=== PATIENT | male | born 1975 | race Caucasian/White ===

== ENCOUNTER 2017-01-28 20:03 | Inpatient (IN) | payer OTHER ==
--- NOTE | ~2017-01-28 | PN ---
Unit #: [id number] #: [id number] Patient: EVELINA SOLANO [id number] [facility] [address] [place] [address] [id number] MR#: [id number] NAME: EVELINA SOLANO. ROOM: P1 Age: 41 Sex: M Admission Date: 01/28/2017 : 1975 Attending Physician: Kizzy Davidson M.D. Admitting Physician: Kizzy Davidson M.D. Primary Care Physician: Paola COX NOTES DATE OF SERVICE: 02/06/2017 SUBJECTIVE Mr. Solano is a 41-year-old white male with mood disorder and substance abuse, who was seen today and chart was reviewed and case was discussed with the staff. He has been doing fairly well, though has been complaining of persistent anxiety and depressive symptoms, though has been taking medications and tolerating them fairly well with no reported side effects. MENTAL STATUS EXAMINATION Middle-aged white male who was casually dressed with fair personal hygiene, appears to be in no acute distress or discomfort. He was awake and alert with intact orientation. His mood was anxious with a congruent affect. He denies any suicidal or homicidal ideations. His insight and judgment remain slightly impaired. TREATMENT PLAN 1. We will continue on his current medications and treatment protocol. We will monitor his response to the medications and make further adjustments as needed. 2. We will continue to follow up. Dictated by... Kizzy Davidson M.D. DILLON/dorianl TD: 02/08/2017 01:20 JOB #: [id number] IVANNA COX NOTES Page 1 of 1 X Kizzy Davidson MD PROGRESS NOTE
--- NOTE | ~2017-01-28 | PN ---
Unit #: [id number] #: [id number] Patient: EVELINA IBARRA [id number] [facility] [address] [place] [address] [id number] I MR#: [id number] NAME: EVELINA IBARRA ROOM: [facility] Age: 41 Sex: M Admission Date: 01/28/2017 : 1975 Attending Physician: Kizzy Davidson M.D. Admitting Physician: Kizzy Davidson M.D. Primary Care Physician: Paola GONCALVES PROGRESS NOTES DATE OF SERVICE 02/04/2017 DISCUSSION Mr. Ibarra is a 41-year-old white male who was seen today. Chart was reviewed and case was discussed with the staff. He has been complaining of persistent depression and anxiety. Meanwhile, he has been cooperative with the treatment recommendations and has been taking the medications and tolerating them fairly well with no reported side effects. MENTAL STATUS EXAMINATION Middle-aged white male who is casually dressed. His mood is anxious with congruent affect. His speech is slow and goal-directed. He reports having suicidal ideation but denies any homicidal ideation. His insight and judgment remain slightly impaired. TREATMENT PLAN 1. We will continue him on his current medications and treatment protocol. We will monitor his response to the medications and make further adjustments as needed. 2. We will continue to follow up. Dictated by... Bill Walker/bzg TD: 02/04/2017 13:35 JOB #: [id number] IVANNA PROGRESS NOTES Page 1 of 1 X Kizzy Davidson MD X PROGRESS NOTE
--- NOTE | ~2017-01-28 | HP ---
Unit #: [id number] #: [id number] Patient: TRACE SOLANO [id number] [place] [address] [id number] I MR#: [id number] NAME: TRACE SOLANO. ROOM: [facility] Age: 41 Sex: M Admission Date: 01/28/2017 : 1975 Attending Physician: Kizzy Davidson M.D. Admitting Physician: Kizzy Davidson M.D. Primary Care Physician: Paola Bello HISTORY AND PHYSICAL HISTORY OF PRESENT ILLNESS Trace is a 41-year-old male admitted on 01/28/2017 to [facility] for detox from alcohol. He also has complaints of depression, anxiety, and bipolar disorder. PAST MEDICAL HISTORY 1. Obesity. 2. Chronic migraine. 3. Fibromyalgia. 4. Hypertension. 5. Hyperlipidemia. PAST SURGICAL HISTORY Appendectomy. SOCIAL HISTORY Smokes half pack of cigarettes daily. Drinks 3 to 6 beers daily and has a history of (1) __. He is currently single (2) __. FAMILY HISTORY Noncontributory. REVIEW OF SYSTEMS CONSTITUTIONAL: No fever or chills. HEENT: Denies any sore throat, ear pain or runny nose. CARDIOVASCULAR: Denies chest pain, irregular heart rhythm or palpitations. CHEST: Denies shortness of breath or cough. No hemoptysis. GASTROINTESTINAL: Denies nausea, vomiting, diarrhea or chronic constipation. ENDOCRINE: Denies history of increased thirst or urination. No recent significant weight loss or gain. GENITOURINARY: Denies dysuria, frequency, or hematuria. SKIN: Denies any rashes. HEMATOLOGIC: Denies history of increased bleeding or bruising. MUSCULOSKELETAL: Denies any hot, swollen joints. No generalized muscle pain. NEUROLOGIC: Denies problems with vision or speech. No frequent, severe headaches. No numbness, tingling or weakness in any extremities. Denies loss of bladder or bowel control. CURRENT MEDICATIONS Lisinopril/HCTZ, Cymbalta, Lyrica, tramadol, Seroquel, Soma, Lipitor, Stadol. Unit #: [id number] #: [id number] Patient: TRACE SOLANO ALLERGIES Azithromycin. PHYSICAL EXAMINATION GENERAL: Alert, oriented, no acute distress. VITAL SIGNS: Blood pressure 131/81, heart rate 104, respiratory rate 18, temperature 98.3. HEIGHT: 5 feet 11. WEIGHT: 296 pounds. SKIN: Warm, dry. No rashes or lesions, track chauhan, cuts, etc. HEENT: Normocephalic. TMs not viewed. Oronasal passages clear. Conjunctivae clear. PERRLA. EOM is intact. NECK: No lymphadenopathy or thyromegaly. HEART: Regular rate and rhythm. No murmur, gallop, or rub. LUNGS: Clear to auscultation bilaterally. ABDOMEN: Soft, nontender without palpable masses or hepatosplenomegaly. : Not assessed. EXTREMITIES: No evidence of cyanosis, clubbing, or edema. Moves all extremities independently without obvious deficit. NEUROLOGICAL: Grossly within normal limits. Cranial Nerves: II: Visual diamond are intact. III, IV AND : Extraocular movements are intact. Pupils are equal, round and reactive to light. V: Facial sensation is grossly normal. VII: Facial movements and expression are normal. VIII: Auditory acuity grossly intact. IX, X: Uvula is midline. Phonation is normal. XI: Patient shrugs shoulders and turns head normally. XII: Tongue protrudes in the midline. Sensory and Motor Function: Sensory and motor sensation is grossly normal. Motor: moves all extremities well. Coordination: Gait is normal. Deep Tendon Reflexes: Intact. IMPRESSION 1. Psychiatric admission. 2. Obesity. 3. Chronic migraine. 4. Fibromyalgia. 5. Hypertension. 6. Hyperlipidemia. RECOMMENDATIONS PSYCHIATRIC: Per psychiatrist. MEDICAL: No contraindication to participating in this facility's activities. MEDICAL PROGNOSIS Good. MEDICAL CONDITION Stable. Dictated by... Selena Briseno A.P.R.N. Unit #: [id number] #: [id number] Patient: TRACE SOLANO ROSELIA/virgeng TD: 01/29/2017 15:36 JOB #: [id number] HISTORY AND PHYSICAL Page 1 of 1 X SELENA NELSON APRN HISTORY AND PHYSICAL
--- NOTE | ~2017-01-28 | PN ---
Unit #: [id number] #: [id number] Patient: EVELINA IBARRA [id number] [facility] [address] [place] [address] [id number] I MR#: [id number] NAME: EVELINA IBARRA. ROOM: [facility] Age: 41 Sex: M Admission Date: 01/28/2017 : 1975 Attending Physician: Kizzy Davidson M.D. Admitting Physician: Kizzy Davidson M.D. Primary Care Physician: Paola GONCALVES PROGRESS NOTES DATE 02/02/2017 DISCUSSION Mr. Ibarra is a 41-year-old, white male with mood disorder who was seen today and chart was reviewed and case was discussed with the staff. He remains anxious, withdrawn, depressed and rather seclusive to himself. Meanwhile, he has been cooperative with treatment recommendations. He has been taking the medication and tolerating them fairly well with no reported side effects. MENTAL STATUS EXAM Middle-aged young white male who was casually dressed with fair personal hygiene, appears to be in no acute distress or discomfort. He was awake and alert on interaction with intact orientation. His mood was anxious and depressed with congruent affect. He reports having suicidal ideation but denies any homicidal ideation. His insight and judgement remains slightly impaired. TREATMENT PLAN 1. We will continue him on his current medications and treatment protocol. We will monitor his response to the medication and make further adjustments as needed. 2. We will continue to follow up. Dictated by... Bill Walker/frankie TD: 02/03/2017 00:29 JOB #: [id number] Unit #: [id number] #: [id number] Patient: EVELINA IBARRA IVANNA PROGRESS NOTES Page 1 of 1 X Kizzy Davidson MD X PROGRESS NOTE
--- NOTE | ~2017-01-28 | PN ---
Unit #: [id number] #: [id number] Patient: EVELINA IBARRA [id number] [facility] [address] [place] [address] [id number] I MR#: [id number] NAME: EVELINA IBARRA. ROOM: [facility] Age: 41 Sex: M Admission Date: 01/28/2017 : 1975 Attending Physician: Kizzy Davidson M.D. Admitting Physician: Kizzy Davidson M.D. Primary Care Physician: Paola GONCALVES PROGRESS NOTES DATE OF SERVICE: 01/30/2017 SUBJECTIVE Mr. Ibarra is a 41-year-old white male, who was seen today and chart was reviewed and the case was discussed with the staff. He has been anxious, withdrawn, and rather seclusive to himself. Meanwhile, he has been cooperative with the treatment recommendations and has been taking the medications and tolerating them fairly well with no reported side effects. MENTAL STATUS EXAMINATION Middle-aged white male, who was casually dressed with a fair personal hygiene, appears to be in no acute distress or discomfort. He was awake and alert on interaction with intact orientation. His mood was anxious with a congruent affect. He denies any suicidal or homicidal ideations. His insight and judgment remain slightly impaired. TREATMENT PLAN 1. We will continue him on his current medications and treatment protocol. We will monitor his response to the medications and make further adjustments as needed. 2. We will continue to follow up. Dictated by... Bill Walker/layla TD: 01/30/2017 13:36 JOB #: [id number] [facility] PROGRESS NOTES Page 1 of 1 X Kizzy Davidson MD PROGRESS NOTE
--- NOTE | ~2017-01-28 | DS ---
Unit #: [id number] #: [id number] Patient: [facility] [id number] [facility] [address] [place] [address] [id number] I MR#: [id number] NAME: EVELINA IBARRA ROOM: [facility] Age: 41 Sex: M Admission Date: 01/28/2017 : 1975 Discharge Date: 02/07/2017 Attending Physician: Kizzy Davidson M.D. Primary Care Physician: Paola Bello DISCHARGE SUMMARY IDENTIFYING DATA Mr. Ibarra is a 41-year-old single white male, who is a resident of [place], [place], and was self-referred to the hospital on voluntary basis. DISCHARGE DIAGNOSES Psychiatric: Major depressive disorder, recurrent, moderate, without psychotic features; opioid dependence, moderate and acute withdrawals. Medical: Fibromyalgia and hypertension. Stressors: Mild psychosocial stressors. HISTORY OF PRESENT ILLNESS Please see initial psychiatric evaluation for details. PAST PSYCHIATRIC HISTORY Please see initial psychiatric evaluation for details. PAST MEDICAL HISTORY Please see initial psychiatric evaluation for details. HOSPITAL COURSE The patient was admitted to the adult chemical dependency unit at [facility] and was oriented to the hospital environment. Routine p.r.n. medications were initiated, and he was started back on his home medications and medications were adjusted as he was consistent reporting having some depression, anxiety, and suicidal thoughts. However, he was taking the medications regularly and was tolerating them fairly well and was able to show a decent and therapeutic response and as such, it was decided that he will be discharged home and will continue treatment on an outpatient basis. DISCHARGE MEDICATIONS Cymbalta 60 mg b.i.d. for depression, Seroquel 400 mg at bedtime for depression, trazodone 100 mg at bedtime for sleep. DISCHARGE CONDITION Stable. PROGNOSIS Fair. Dictated by... Unit #: [id number] #: [id number] Patient: EVELINA IBARRA Bill Walker/layla TD: 02/07/2017 22:22 JOB #: [id number] DISCHARGE SUMMARY Page 1 of 1 X Kizzy Davidson MD X DISCHARGE SUMMARY
--- NOTE | ~2017-01-28 | PA ---
Unit #: [id number] #: [id number] Patient: EVELINA SOLANO [id number] [facility] [address] [place] [address] [id number] I MR#: [id number] NAME: EVELINA SOLANO. ROOM: P1 Age: 41 Sex: M Admission Date: 01/28/2017 : 1975 Date of Assessment: 01/29/2017 Attending Physician: Kizzy Davidson M.D. Admitting Physician: Kizzy Davidson M.D. Primary Care Physician: Paola Bello PSYCHIATRIC ASSESSMENT IDENTIFYING DATA The patient is a 41-year-old single white male, who is a resident of [place], [place] and was self-referred to the hospital on a voluntary basis. CHIEF COMPLAINT "I was treated here and since that time I have relapsed". HISTORY OF PRESENT ILLNESS Mr. Solano is a 41-year-old white male, who was self-referred to the hospital. Upon presentation, reports that [facility] and he went to rehab at [facility], was since that time, he has relapsed and was seen to be distraught by situation and feeling suicidal, so he came in for assessment and reports that he left his job last week due to having better offer, but he is now unsure it will happen due to his needing detox and states that he has been staying until day before yesterday and reports that since that time, he has just been roaming around and back in August, good friend of heroin overdose and he feels that loss due to this stay, but reports he has not been working for few weeks due to he having hernia and reports that he has been having financial problems and does report increasing depression, anxiety, irritability, reports having suicidal ideation in the course of the past week because he feels he cannot stop using drugs and alcohol, despite previous episodes of rehab, sobriety, and reports that his family would have less worry and stress if he was , rather than watching relapse and being addicted and as such, recommendation for inpatient level of care for safety and stabilization was made and the patient was transferred to us. SUBSTANCE ABUSE HISTORY The patient reports history of alcohol, cannabis, cocaine, opioids, amphetamine, and benzodiazepine abuse, and reports that he has been drinking 3 to 6 beers a day and has been using opioids up to 60 mg a day and describes opioids to be his drug of choice. PAST PSYCHIATRIC HISTORY The patient has a history of inpatient chemical dependency treatment at [facility] as well as at [facility]. Review of the medical records indicate currently he is on combination of psychotropic medications, but has history of poor compliance with treatment. PAST MEDICAL HISTORY Unit #: [id number] #: [id number] Patient: EVELINA SOLANO The patient's medical history is significant for hypertension and fibromyalgia. ALLERGIES Azithromycin. PERSONAL AND SOCIAL HISTORY A 41-year-old white male, who reports that he is single, unemployed, and essentially homeless and has poor social support system. MENTAL STATUS EXAMINATION Middle-aged white male, who was casually dressed with fair personal hygiene, appears to be in no acute distress or discomfort. He was awake and alert on interaction with intact orientation to time, place, and person. His mood was anxious and depressed with a congruent affect. His speech was slow and goal directed. He reports having suicidal ideations, but denies any homicidal ideations, and also denies any auditory or visual hallucinations. His insight and judgment remain significantly impaired. DIAGNOSTIC IMPRESSION Psychiatric: Major depressive disorder, recurrent, moderate, without psychotic features; opioid dependence, moderate and acute withdrawals. Medical: Hypertension and fibromyalgia. Stressors: Moderate psychosocial stressors. TREATMENT PLAN 1. The patient has presented with history of mood disorder and substance abuse and has been decompensating and will need inpatient hospitalization for safety and stabilization. We will start him back on his home medications and detox protocol will be initiated as well. 2. Supportive therapy was provided to the patient. 3. Safe, structured, and nourishing environment will be provided. ESTIMATED LENGTH OF STAY 5 to 7 days. ABILITY TO HELP SELF Limited. WILLINGNESS TO HELP SELF The patient appears to be willing to help self. STRENGTHS 1. Communicative. 2. Cooperative. PROBLEMS 1. Chronic dysphoric symptoms. 2. Chronic chemical dependency. 3. Poor social support system. DISCHARGE CRITERIA This will be contingent upon the patient's ability to go through detox without having any significant withdrawal symptoms as well as his ability to stay safe to himself, particularly after discharge from the hospital. Dictated by... Unit #: [id number] #: [id number] Patient: EVELINA SOLANO M.D. IAA/layla TD: 01/29/2017 15:16 JOB #: [id number] PSYCHIATRIC ASSESSMENT Page 1 of 1 X Kizzy Davidson MD PSYCHIATRIC ASSESSMENT
--- NOTE | ~2017-01-28 | PN ---
Unit #: [id number] #: [id number] Patient: EVELINA IBARRA [id number] [facility] [address] [place] [address] [id number] I MR#: [id number] NAME: EVELINA IBARRA. ROOM: [facility] Age: 41 Sex: M Admission Date: 01/28/2017 : 1975 Attending Physician: Kizzy Davidson M.D. Admitting Physician: Kizzy Davidson M.D. Primary Care Physician: Paola GONCALVES PROGRESS NOTES DATE 02/01/2017 DISCUSSION Mr. Ibarra is a 41-year-old, white male with substance abuse and mood disorder who was seen today and chart was reviewed and case was discussed with the staff. He was seen to be anxious, withdrawn and reports not feeling good and still having persistent detox symptoms. Meanwhile, he has been taking the medication and tolerating them fairly well with no reported side effects. MENTAL STATUS EXAM Middle-aged white male who was casually dressed with fair personal hygiene, appears to be in no acute distress or discomfort. He was awake and alert on interaction with intact orientation. His mood was anxious with congruent affect. His speech was slow and goal directed. He denies any suicidal or homicidal ideation. Also, denies any auditory or visual hallucinations. His insight and judgement remains slightly impaired. TREATMENT PLAN 1. We will continue him on his current medications and treatment protocol. We will monitor his response to the medication and make further adjustments as needed. 2. We will continue to follow up. Dictated by... Bill Walker/frankie TD: 02/02/2017 00:06 JOB #: [id number] Unit #: [id number] #: [id number] Patient: EVELINA IBARRA IVANNA PROGRESS NOTES Page 1 of 1 X Kizzy Davidson MD PROGRESS NOTE
--- NOTE | ~2017-01-28 | PN ---
Unit #: [id number] #: [id number] Patient: EVELINA IBARRA [id number] [facility] [address] [place] [address] [id number] I MR#: [id number] NAME: EVELINA IBARRA. ROOM: [facility] Age: 41 Sex: M Admission Date: 01/28/2017 : 1975 Attending Physician: Kizzy Davidson M.D. Admitting Physician: Kizzy Davidson M.D. Primary Care Physician: Paola GONCALVES PROGRESS NOTES DATE OF SERVICE: 01/31/2017 SUBJECTIVE Mr. Ibarra is a 41-year-old white male, who was seen today and chart was reviewed and the case was discussed with the staff. He has been anxious and withdrawn, though appears to be doing somewhat better and has been coming out of the detox without any complications. He has been taking the medications and tolerating them fairly well with no reported side effects. MENTAL STATUS EXAMINATION Young white male, who was casually dressed with fair personal hygiene, appears to be in no acute distress or discomfort. He was awake and alert on interaction with intact orientation to time, place, and person. His mood was anxious with a congruent affect. His speech was slow and goal directed. He denies any suicidal or homicidal ideations. His insight and judgment remain slightly impaired. TREATMENT PLAN We will continue him on his current medications and treatment protocol and we will monitor his response and make further adjustments as needed. Dictated by... Bill Walker/layla TD: 01/31/2017 13:28 JOB #: [id number] [facility] PROGRESS NOTES Page 1 of 1 X Kizzy Davidson MD PROGRESS NOTE
--- NOTE | ~2017-01-28 | PN ---
Unit #: [id number] #: [id number] Patient: EVELINA SOLANO [id number] [facility] [address] [place] [address] [id number] I MR#: [id number] NAME: EVELINA SOLANO. ROOM: [facility] Age: 41 Sex: M Admission Date: 01/28/2017 : 1975 Attending Physician: Kizzy Davidson M.D. Admitting Physician: Kizzy Davidson M.D. Primary Care Physician: Paola COX NOTES DATE OF SERVICE 02/04/2017 DISCUSSION Mr. Solano is a 41-year-old white male who was seen today. Chart was reviewed and case was discussed with the staff. He has been anxious, withdrawn though has not shown any agitation, irritability, or behavioral problems. He has been cooperative with the treatment recommendations and has been taking the medications and tolerating them fairly well with no reported side effects. MENTAL STATUS EXAMINATION Middle-aged white male who is casually dressed with fair personal hygiene, appears to be in no acute distress or discomfort. He was awake and alert on interaction with intact orientation. His mood is anxious with congruent affect. He denies any suicidal or homicidal ideations. His insight and judgment remain slightly impaired. TREATMENT PLAN 1. We will continue him on his current medications and treatment protocol. We will monitor his response to the medications and make further adjustments as needed. 2. We will continue to follow up. Dictated by... Kizzy Davidson M.D. IAA/bzg TD: 02/05/2017 12:14 JOB #: [id number] Unit #: [id number] #: [id number] Patient: EVELINA SOLANO IVANNA PROGRESS NOTES Page 1 of 1 X Kizzy Davidson MD X PROGRESS NOTE
--- NOTE | ~2017-01-28 | PN ---
Unit #: [id number] #: [id number] Patient: EVELINA IBARRA [id number] [facility] [address] [place] [address] [id number] I MR#: [id number] NAME: EVELINA IBARRA ROOM: [facility] Age: 41 Sex: M Admission Date: 01/28/2017 : 1975 Attending Physician: Kizzy Davidson M.D. Admitting Physician: Kizzy Davidson M.D. Primary Care Physician: Paola COX NOTES DATE OF SERVICE: 02/03/2017 SUBJECTIVE Mr. Ibarra is a 41-year-old white male with mood disorder, who was seen today and chart was reviewed, and case was discussed with the staff. He reports persistent anxiety and depression, though Seroquel was just increased to 300 mg at bedtime and Cymbalta has been maintained at the maximum dose of 60 mg b.i.d. He has been polite, pleasant, and cooperative with treatment recommendation and has been taking medications and tolerating them fairly well with no reported side effects. MENTAL STATUS EXAMINATION Middle-aged white male who was casually dressed with fair personal hygiene, appears to be in no acute distress or discomfort. He was awake and alert on interaction with intact orientation. His mood was anxious and depressed with a congruent affect. He reports having suicidal ideations, but denies any intent or plan. His insight and judgment remain slightly impaired. TREATMENT PLAN 1. We will continue on his current medications and treatment protocol. We will monitor his response to medications and make further adjustments as needed. 2. We will continue to follow up. Dictated by... Bill Walker/layla TD: 02/03/2017 07:54 JOB #: [id number] Unit #: [id number] #: [id number] Patient: EVELINA IBARRA IVANNA COX NOTES Page 1 of 1 X Kizzy Davidson MD PROGRESS NOTE
[2017-01-29 14:14] LABS: BASOPHIL% 0.3 % (0-2.5); EOSINOPHIL# 0.3 X10e3 (0-0.7); EOSINOPHIL% 4.5 % (0.0-7.0); HEMATOCRIT 41.5 % (38.0-50.0); HEMOGLOBIN 13.6 gm/dL (13.0-16.0); LYMPHOCYTE# 1.1 X10e3 (1.0-3.5); LYMPHOCYTE% 19.3 % (17.0-45.0); MEAN CELL VOLUME 89.3 FL (83-96); MEAN CORPUSCULAR HEMOGLOBIN 29.3 PG (28-34); MEAN CORPUSCULAR HGB CONC 32.9 g/dL (30-36); MEAN PLATELET VOLUME 9.9 FL (6.5-11.5); MONOCYTE# 0.4 X10e3 (0-1.0); MONOCYTE% 7.6 % (3.0-12.0); NEUTROPHIL# 3.9 X10e3 (1.5-7.1); NEUTROPHIL% 68.3 % (40-75); PLATELET COUNT 163 X10e3 (140-420); RED BLOOD COUNT 4.65 X10e (3.90-5.60); RED CELL DISTRIBUTION WIDTH 13.1 % (11.0-15.5); WHITE BLOOD COUNT 5.7 X10e3 (4.0-10.5)
[2017-01-29 14:16] LABS: DIFF IND NO
[2017-01-29 14:54] LABS: ALBUMIN SERUM 3.9 g/dL (3.5-5.0); BILIRUBIN,TOTAL 0.8 mg/dL (0.2-2.0); BUN/CREATININE RATIO 12.22; CALCIUM SERUM 9.1 mg/dL (8.4-10.2); CREATININE SERUM 0.9 mg/dL (0.6-1.4); GLOM FILT RATE Estimated 106.5 mL/min (>60); POTASSIUM 4.3 mmol/L (3.5-5.1); PROTEIN TOTAL SERUM 6.6 g/dL (6.0-8.3)
[2017-01-30 11:45] LABS: URINE APPEARANCE CLOUDY; URINE BILIRUBIN NEG (NEG); URINE BLOOD NEG (NEG); URINE COLOR YELLOW; URINE GLUCOSE 100 MG/DL (NEG); URINE KETONE TRACE (NEG); URINE LEUKOCYTE ESTERASE NEG (NEG); URINE NITRATE NEG (NEG); URINE PH 6.5 (5-8); URINE PROTEIN NEG (NEG); URINE SPECIFIC GRAVITY 1.017 (1.003-1.035); URINE UROBILINOGEN 0.2 MG/DL (NEG)
[2017-01-30 12:07] LABS: CULTURE INDICATED? NO
[2017-01-30 12:15] LABS: AMPHETAMINE NEG (NEG); BARBITURATES NEG (NEG); BENZODIAZEPINES POS (NEG); COCAINE NEG (NEG); MARIJUANA NEG (NEG); OPIATES NEG (NEG); TRICYCLIC ANTIDEPRESSANTS NEG (NEG); U METHADONE NEG (NEG)
== END 2017-02-07 12:55 | DRG 885 ==
LOC: P1E 23:22
PROVIDERS: Psychiatry & Neurology Psychiatry
DX: F33.1 Major depressive disorder, recurrent, moderate (principal); I10 Essential (primary) hypertension; F11.23 Opioid dependence with withdrawal; F17.210 Nicotine dependence, cigarettes, uncomplicated; E66.9 Obesity, unspecified; M79.7 Fibromyalgia; E78.5 Hyperlipidemia, unspecified
CPT/HCPCS: 80053; 80307; 81003; 85025; 86592

== ENCOUNTER 2017-03-13 22:00 | Inpatient (IN) | payer OTHER ==
[~2017-03-13] VITALS: Ht 180.3 cm; Wt 109.8 kg
--- NOTE | ~2017-03-13 | HP ---
Unit #: [id number] #: [id number] Patient: TRACE SOLANO [id number] [facility] [place] [address] [id number] MR#: [id number] NAME: TRACE SOLANO. ROOM: P121 Age: 41 Sex: M Admission Date: 03/14/2017 : 1975 Attending Physician: Kizzy Davidson M.D. Admitting Physician: Kizzy Davidson M.D. Primary Care Physician: Primary Care Physician No HISTORY AND PHYSICAL HISTORY OF PRESENT ILLNESS Trace is a 41 year old admitted to [address] [place] [address] because of his continued abuse of alcohol. He has had other admissions to this facility. PAST MEDICAL HISTORY 1. Long history of alcohol abuse. 2. High blood pressure. 3. Hypercholesterolemia. 4. History of migraine headaches. 5. Obesity. PAST SURGICAL HISTORY Appendectomy. ALLERGIES Azithromycin SOCIAL HISTORY Smokes one-half pack per day. Drinks at least a six-pack of a beer on a daily basis and denies illicit drug use. FAMILY HISTORY Medically noncontributory. REVIEW OF SYSTEMS CONSTITUTIONAL: No fever or chills. HEENT: Denies any sore throat, ear pain or runny nose. CARDIOVASCULAR: Denies chest pain, irregular heart rhythm or palpitations. CHEST: Denies shortness of breath or cough. No hemoptysis. GASTROINTESTINAL: Denies nausea, vomiting, diarrhea or chronic constipation. ENDOCRINE: Denies history of increased thirst or urination. No recent significant weight loss or gain. GENITOURINARY: Denies dysuria, frequency, or hematuria. SKIN: Denies any rashes. HEMATOLOGIC: Denies history of increased bleeding or bruising. MUSCULOSKELETAL: Denies any hot, swollen joints. No generalized muscle pain. NEUROLOGIC: Denies problems with vision or speech. No frequent, severe headaches. No numbness, tingling or weakness in any extremities. Denies loss of bladder or bowel control. Unit #: [id number] #: [id number] Patient: TRACE SOLANO CURRENT MEDICATIONS 1. Detox protocol 2. Seroquel 200 mg q.h.s. 3. Lipitor 20 mg q.h.s. 4. Inderal 80 mg b.i.d. 5. Cymbalta 60 mg b.i.d. 6. Soma 350 mg t.i.d. 7. Lyrica 200 mg t.i.d. 8. Ultram 50 mg t.i.d. PHYSICAL EXAMINATION GENERAL: Alert, obese, in no apparent distress. VITAL SIGNS: Blood pressure 105/70, heart rate 80, respirations 16, temperature 98.6. WEIGHT: 242 pounds. HEIGHT: 5'11". SKIN: Warm and dry without rash or lesion. HEENT: Normocephalic. TMs not viewed. Oral and nasal passages clear. Conjunctivae clear. Pupils equal, round and reactive to light and accommodation. Extraocular movements intact. NECK: Supple without lymphadenopathy or thyromegaly. HEART: Regular rate and rhythm without murmur. LUNGS: Clear. ABDOMEN: Soft, nontender. : Not done. EXTREMITIES: No evidence of cyanosis, clubbing or edema. Moves all extremities without focal deficit. NEUROLOGICAL: Grossly within normal limits. Cranial Nerves: II: Visual diamond are intact. III, IV AND : Extraocular movements are intact. Pupils are equal, round and reactive to light. V: Facial sensation is grossly normal. VII: Facial movements and expression are normal. VIII: Auditory acuity grossly intact. IX, X: Uvula is midline. Phonation is normal. XI: Patient shrugs shoulders and turns head normally. XII: Tongue protrudes in the midline. Sensory and Motor Function: Sensory and motor sensation is grossly normal. Motor: moves all extremities well. Coordination: Gait is normal. Deep Tendon Reflexes: Intact. IMPRESSION Psychiatric admission RECOMMENDATIONS PSYCHIATRIC: Per psychiatrist. MEDICAL: I see no contraindications to participating in facility's activities. MEDICAL PROGNOSIS Good. MEDICAL CONDITION Stable. Unit #: [id number] #: [id number] Patient: TRACE SOLANO Dictated by... Nivia Miner P.A.-C. for Bill Prince/frankie TD: 03/14/2017 21:22 JOB #: [id number] HISTORY AND PHYSICAL Page 1 of 1 X Nivia Miner HISTORY AND PHYSICAL
--- NOTE | ~2017-03-13 | PN ---
Unit #: [id number] #: [id number] Patient: EVELINA IBARRA [id number] [facility] [address] [place] [address] [id number] I MR#: [id number] NAME: EVELINA IBARRA. ROOM: P214 Age: 41 Sex: M Admission Date: 03/14/2017 : 1975 Attending Physician: Kizzy Davidson M.D. Admitting Physician: Kizzy Davidson M.D. Primary Care Physician: Primary Care Physician Verónica GONCALVES PROGRESS NOTES DATE 03/18/2017 DISCUSSION Mr. Ibarra is a 41-year-old white male who was seen today and chart was reviewed and case was discussed with the staff. He has been anxious, withdrawn, was feeling in a dark place and feeling hopeless and having suicidal thoughts. Meanwhile, he has been taking medications and tolerating them fairly well. MENTAL STATUS EXAMINATION Middle-aged white male who was casually dressed with fair personal hygiene and appears to be in no acute distress or discomfort. He was awake and alert on interaction with intact orientation. His mood was anxious with congruent affect. He denies any suicidal or homicidal ideations. His insight and judgement remains slightly impaired. TREATMENT PLAN 1. Continue on his current medications and treatment protocol. Will monitor his response to the medications and make further adjustments as needed. 2. Will continue to follow up. Dictated by... Bill Walker/jeanine TD: 03/18/2017 17:34 JOB #: [id number] Unit #: [id number] #: [id number] Patient: EVELINA IBARRA IVANNA PROGRESS NOTES Page 1 of 1 X Kizzy Davidson MD PROGRESS NOTE
--- NOTE | ~2017-03-13 | PN ---
Unit #: [id number] #: [id number] Patient: EVELINA IBARRA [id number] [facility] [address] [place] [address] [id number] I MR#: [id number] NAME: EVELINA IBARRA. ROOM: P214 Age: 41 Sex: M Admission Date: 03/14/2017 : 1975 Attending Physician: Kizzy Davidson M.D. Admitting Physician: Kizzy Davidson M.D. Primary Care Physician: Primary Care Physician Verónica COX NOTES DATE March 20, 2017 DISCUSSION Mr. Ibarra is a 41-year-old white male, who was seen today and chart was reviewed and the case was discussed with the staff. He has been anxious, withdrawn, and rather seclusive to himself. Meanwhile, he has been cooperative with the treatment recommendations and he has been taking the medications and tolerating them fairly well with no reported side effects. MENTAL STATUS EXAMINATION Middle-aged white male, who was casually dressed with fair personal hygiene and appears to be in no acute distress or discomfort. He was awake and alert on interaction with intact orientation. His mood is anxious and depressed with a congruent affect. He reports having suicidal ideations but denies any homicidal ideations. His insight and judgment remain slightly impaired. TREATMENT PLAN 1. We will continue him on his current medications and treatment protocol, and will monitor his response to the medications, and make further adjustments as needed. 2. We will continue to followup. Dictated by... Bill Walker/lulú TD: 03/21/2017 12:21 JOB #: [id number] Unit #: [id number] #: [id number] Patient: EVELINA BIARRA IVANNA COX NOTES Page 1 of 1 X Kizzy Davidson MD PROGRESS NOTE
--- NOTE | ~2017-03-13 | PN ---
Unit #: [id number] #: [id number] Patient: EVELINA SOLANO [id number] [facility] [address] [place] [address] [id number] I MR#: [id number] NAME: EVELINA SOLANO. ROOM: P214 Age: 41 Sex: M Admission Date: 03/14/2017 : 1975 Attending Physician: Kizzy Davidson M.D. Admitting Physician: Kizzy Davidson M.D. Primary Care Physician: Primary Care Physician Verónica COX NOTES DATE 03/17/2017 DISCUSSION Mr. Solano is a 41-year-old white male who was seen today and chart was reviewed and case was discussed with the staff. He has been anxious, withdrawn and rather seclusive to himself. Meanwhile, he has been cooperative with treatment recommendations and has been taking medications and tolerating them fairly well with no reported side effects. MENTAL STATUS EXAMINATION Middle-aged white male who was casually dressed with fair personal hygiene and appears to be in no acute distress or discomfort. He was awake and alert on interaction with intact orientation. His mood was anxious and depressed with congruent affect. He denies any suicidal or homicidal ideation. His insight and judgement remains slightly impaired. TREATMENT PLAN 1. Will continue on his current medications and treatment protocol. Will monitor his response to the medication and make further adjustments as needed. 2. Will continue to follow up. Dictated by... Kizzy Davidson M.D. IAA/jeanine TD: 03/17/2017 22:46 JOB #: [id number] Unit #: [id number] #: [id number] Patient: EVELINA SOLANO IVANNA COX NOTES Page 1 of 1 X Kizzy Davidson MD PROGRESS NOTE
--- NOTE | ~2017-03-13 | PN ---
Unit #: [id number] #: [id number] Patient: EVELINA IBARRA [id number] [facility] [address] [place] [address] [id number] I MR#: [id number] NAME: EVELINA IBARRA. ROOM: P214 Age: 41 Sex: M Admission Date: 03/14/2017 : 1975 Attending Physician: Kizzy Davidson M.D. Admitting Physician: Kizzy Davidson M.D. Primary Care Physician: Primary Care Physician Verónica GONCALVES PROGRESS NOTES DATE 03/21/2017 DISCUSSION Mr. Ibarra is a 41-year-old white male who was seen today and chart was reviewed and case was discussed with the staff. He has been anxious, withdrawn and seclusive to himself. Meanwhile, he has been cooperative with treatment recommendations and has been taking medications and tolerating them fairly well with no reported side effects. MENTAL STATUS EXAMINATION Middle-aged white male who was casually dressed with fair personal hygiene. He was awake and alert on interaction with intact orientation. His mood was anxious and depressed with congruent affect. He reports having suicidal ideation but denies any homicidal ideations. His insight and judgement remains slightly impaired. TREATMENT PLAN 1. Will continue on him on his current medications and will adjust his medications and will change Seroquel to 400 mg at bedtime. Will maintain Cymbalta at 60 mg twice a day. Will monitor response. 2. Will continue to follow up. Dictated by... Bill Walker/jeanine TD: 03/22/2017 18:27 JOB #: [id number] Unit #: [id number] #: [id number] Patient: EVELINA IBARRA IVANNA PROGRESS NOTES Page 1 of 1 X Kizzy Davidson MD PROGRESS NOTE
--- NOTE | ~2017-03-13 | PN ---
Unit #: [id number] #: [id number] Patient: EVELINA IBARRA [id number] [facility] [address] [place] [address] [id number] I MR#: [id number] NAME: EVELINA IBARRA. ROOM: P214 Age: 41 Sex: M Admission Date: 03/14/2017 : 1975 Attending Physician: Kizzy Davidson M.D. Admitting Physician: Kizzy Davidson M.D. Primary Care Physician: Primary Care Physician Verónica GONCALVES PROGRESS NOTES DATE 03/19/2017 DISCUSSION Mr. Ibarra is a 41-year-old, white male who was seen today and chart was reviewed and case was discussed with the staff. He has been anxious, withdrawn and rather seclusive to himself and has been reporting persistent depressive symptoms with feelings of hopelessness. Meanwhile, he has been cooperative with the treatment recommendations. He has been taking the medication and tolerating them fairly well with no reported side effects. MENTAL STATUS EXAM Young white male who was casually dressed with fair personal hygiene, appears to be in no acute distress or discomfort. He was awake and alert on interaction with intact orientation. His mood was anxious with congruent affect. He denies any suicidal or homicidal ideation. His insight and judgement remains slightly impaired. TREATMENT PLAN 1. We will continue him on his current treatment protocol. We will monitor his response and make further adjustments as needed. 2. We will continue to follow up. Dictated by... Bill Walker/frankie TD: 03/21/2017 03:41 JOB #: [id number] Unit #: [id number] #: [id number] Patient: EVELINA IBARRA IVANNA PROGRESS NOTES Page 1 of 1 X Kizzy Davidson MD PROGRESS NOTE
--- NOTE | ~2017-03-13 | PN ---
Unit #: [id number] #: [id number] Patient: EVELINA IBARRA [id number] [facility] [address] [place] [address] [id number] I MR#: [id number] NAME: EVELINA IBARRA. ROOM: P214 Age: 41 Sex: M Admission Date: 03/14/2017 : 1975 Attending Physician: Kizzy Davidson M.D. Admitting Physician: Kizzy Davidson M.D. Primary Care Physician: Primary Care Physician Verónica COX NOTES DATE OF SERVICE: 03/16/2017 SUBJECTIVE Mr. Ibarra is a 41-year-old white male with mood disorder, who was seen today and chart was reviewed and case was discussed with the staff. Reports not feeling good as he was seen to be anxious, restless, pacing the hallways, reporting increasing mood swings, anxiety, depression, irritability, restlessness, and inability to sleep at night. Meanwhile, he has been taking the medications and tolerating them fairly well with no reported side effects. MENTAL STATUS EXAMINATION Middle-aged white male who was casually dressed with fair personal hygiene, appears to be in no acute distress or discomfort. He was awake and alert with impaired attention and concentration. His mood was anxious with a congruent affect. His speech was slow and tangential. His thought processes were disorganized with some looseness of association and flight of ideas. His insight and judgment remain significantly impaired. TREATMENT PLAN 1. We will continue him on his current medications and treatment protocol. We will monitor his response to the medications and make further adjustments as needed. 2. We will continue to follow up. Dictated by... Bill Walker/layla TD: 03/17/2017 00:27 JOB #: [id number] Unit #: [id number] #: [id number] Patient: EVELINA IBARRA IVANNA COX NOTES Page 1 of 1 X Kizzy Davidson MD PROGRESS NOTE
--- NOTE | ~2017-03-13 | PN ---
Unit #: [id number] #: [id number] Patient: EVELINA IBARRA [id number] [facility] [address] [place] [address] [id number] I MR#: [id number] NAME: EVELINA IBARRA. ROOM: P214 Age: 41 Sex: M Admission Date: 03/14/2017 : 1975 Attending Physician: Kizzy Davidson M.D. Admitting Physician: Kizzy Davidson M.D. Primary Care Physician: Primary Care Physician Verónica GONCALVES PROGRESS NOTES DATE OF SERVICE: 03/22/2017 SUBJECTIVE Mr. Ibarra is a 41-year-old white male, who was seen today and chart was reviewed and case was discussed with the staff. He has been anxious, withdrawn, depressed, and rather seclusive to himself. Meanwhile, he has been cooperative with treatment recommendations and has been taking medications and tolerating them fairly well with no reported side effects. MENTAL STATUS EXAMINATION Middle-aged white male who was casually dressed with fair personal hygiene, appears to be in no acute distress or discomfort. He was awake and alert on interaction with intact orientation. His mood was anxious and depressed with a congruent affect. His speech was slow and goal directed. He denies any suicidal or homicidal ideation. His insight and judgment remain significantly impaired. TREATMENT PLAN 1. We will continue him on his current treatment protocol. We will monitor his response to the medications and make further adjustments as needed. 2. We will continue to follow up. Dictated by... Bill Walker/layla TD: 03/22/2017 23:12 JOB #: [id number] [facility] PROGRESS NOTES Page 1 of 1 X Kizzy Davidson MD PROGRESS NOTE
--- NOTE | ~2017-03-13 | PN ---
Unit #: [id number] #: [id number] Patient: EVELINA IBARRA [id number] [facility] [address] [place] [address] [id number] I MR#: [id number] NAME: EVELINA IBARRA. ROOM: P121 Age: 41 Sex: M Admission Date: 03/14/2017 : 1975 Attending Physician: Kizzy Davidson M.D. Admitting Physician: Kizzy Davidson M.D. Primary Care Physician: Primary Care Physician Verónica COX NOTES DATE OF SERVICE 03/15/2017 DISCUSSION Mr. Ibarra is a 41-year-old white male who was seen today. Chart was reviewed and case was discussed with the staff. He has been anxious, withdrawn, and rather seclusive to himself. Meanwhile, he has been cooperative with treatment recommendations and has been taking the medications and tolerating them fairly well with no reported side effects. MENTAL STATUS EXAMINATION Middle-aged white male who is casually dressed with fair personal hygiene and appears to be in no acute distress or discomfort. He was awake and alert with intact orientation. His mood is anxious and depressed with congruent affect. His speech is slow and restricted in content. He reports having suicidal ideations but denies any homicidal ideations. His insight and judgment remain slightly impaired. TREATMENT PLAN 1. We will continue him on his current medications and treatment protocol. We will monitor his response to the medications and make further adjustments as needed. 2. We will continue to follow up. Dictated by... Bill Walker/virgeng TD: 03/16/2017 08:22 JOB #: [id number] Unit #: [id number] #: [id number] Patient: EVELINA IBARRA PEAMANUEL PROGRESS NOTES Page 1 of 1 X Kizzy Davidson MD PROGRESS NOTE
== END 2017-03-23 16:30 | disposition home or self-care (01) | DRG 881 ==
LOC: P1S → P2S 03-14 11:48 → P1S 03-14 11:48 → POF 03-14 11:48 → P1S 03-14 12:29 → P2S 03-16 17:48
DX: F32.9 Major depressive disorder, single episode, unspecified (principal); R45.851 Suicidal ideations; F41.9 Anxiety disorder, unspecified
CPT/HCPCS: J3030

== ENCOUNTER 2017-04-28 18:16 | Inpatient (IN) | payer OTHER ==
[~2017-04-28] VITALS: Ht 180.3 cm; Wt 109.8 kg
--- NOTE | ~2017-04-28 | PN ---
Unit #: [id number] #: [id number] Patient: EVELINA SOLANO [id number] [facility] [address] [place] [address] [id number] I MR#: [id number] NAME: EVELINA SOLANO ROOM: [facility] Age: 41 Sex: M Admission Date: 04/28/2017 : 1975 Attending Physician: Kizzy Davidson M.D. Admitting Physician: Kizzy Davidson M.D. Primary Care Physician: Primary Care Physician Verónica COX NOTES DATE OF SERVICE 05/04/2017 DISCUSSION Mr. Solano is a 41-year-old white male who was seen today. Chart was reviewed and case was discussed with staff. He has been anxious, withdrawn, depressed, and seclusive to himself and has been expressing feelings of hopelessness and helplessness. Meanwhile, psych social worker has been working on finding long-term placement for the patient. MENTAL STATUS EXAMINATION Middle-aged white male who is casually dressed with fair personal hygiene, appears to be in no acute distress or discomfort. He was awake and alert with impaired attention and concentration. His mood is anxious with congruent affect. His speech is slow and restricted in content. His thought processes were disorganized with some looseness of associations. His insight and judgment remain significantly impaired. TREATMENT PLAN 1. We will continue him on his current medications and treatment protocol. We will monitor his response to the medications and make further adjustments as needed. 2. We will continue to follow up. Dictated by... Kizzy Davidson M.D. IAA/virgeng TD: 05/04/2017 12:52 JOB #: [id number] Unit #: [id number] #: [id number] Patient: EVLEINA SOLANO PROGRESS NOTES Page 1 of 1 X Kizzy Davidson MD PROGRESS NOTE
--- NOTE | ~2017-04-28 | CO ---
Unit #: [id number] #: [id number] Patient: TRACE SOLANO [id number] [facility] [address] [place] [address] [id number] I MR#: [id number] NAME: TRACE SOLANO ROOM: [facility] Age: 41 Sex: M Admission Date: 04/28/2017 : 1975 Attending Physician: Kizzy Davidson M.D. Consultation Date: 04/29/2017 CONSULTATION REPORT SUBJECTIVE Trace is a 41-year-old who was noted to have an abrasion along his left knee at time of admission. This area was examined and wound was detailed in his admission H and P dated 04/29/2017. Please see H and P dated 04/29/2017. Dictated by... Nivia Miner P.A.-C. for Bill Prince/layla TD: 05/06/2017 18:49 JOB #: [id number] CONSULTATION REPORT Page 1 of 1 X Nivia Miner CONSULTATION REPORT
--- NOTE | ~2017-04-28 | PN ---
Unit #: [id number] #: [id number] Patient: EVELINA IBARRA [id number] [facility] [address] [place] [address] [id number] I MR#: [id number] NAME: EVELINA IBARRA ROOM: [facility] Age: 41 Sex: M Admission Date: 04/28/2017 : 1975 Attending Physician: Kizzy Davidson M.D. Admitting Physician: Kizzy Davidson M.D. Primary Care Physician: Primary Care Physician Verónica COX NOTES DATE May 02, 2017 DISCUSSION Mr. Ibarra is a 41-year-old white male, who was seen today and chart was reviewed and the case was discussed with the staff. He has been anxious, withdrawn, and seclusive to himself. Meanwhile, he has been cooperative with the treatment recommendations and he has been taking the medications and tolerating them fairly well with no reported side effects. MENTAL STATUS EXAMINATION Middle-aged white male, who was casually dressed with fair personal hygiene and appears to be in no acute distress or discomfort. He was awake and alert on interaction with intact orientation. His mood is anxious with a congruent affect. His speech is slow and goal-directed. He denies any suicidal or homicidal ideations, and also denies any auditory or visual hallucinations. His insight and judgment remain slightly impaired. TREATMENT PLAN 1. We will continue him on his current medications and treatment protocol, and will monitor his response to the medications, and make further adjustments as needed. 2. We will continue to followup. Dictated by... Bill Walker/lulú TD: 05/03/2017 08:43 JOB #: [id number] Unit #: [id number] #: [id number] Patient: EVELINA IBARRA PROGRESS NOTES Page 1 of 1 X Kizzy Davidson MD PROGRESS NOTE
--- NOTE | ~2017-04-28 | PA ---
Unit #: [id number] #: [id number] Patient: EVELINA SOLANO [id number] [facility] [address] [place] [address] [id number] I MR#: [id number] NAME: EVELINA SOLANO ROOM: 64 Age: 41 Sex: M Admission Date: 04/28/2017 : 1975 Date of Assessment: 04/29/2017 Attending Physician: Kizzy Davidson M.D. Admitting Physician: Kizzy Davidson M.D. Primary Care Physician: Primary Care Physician No PSYCHIATRIC ASSESSMENT DATE OF SERVICE 04/29/2017. IDENTIFYING DATA Mr. Solano is a 41-year-old single white male, who is a resident of [place], [place], and was brought to the hospital accompanied by his father. CHIEF COMPLAINT "I've been depressed." HISTORY OF PRESENT ILLNESS Mr. Solano is a 41-year-old white male with history of mood disorder, who is known to me from previous encounter, was brought to the hospital by his father and upon presentation, the patient stated that he was kicked out of the sober living house on due to being disruption towards others and stated that he was not really happy with this sober living anyway as people did not like him and the patient reports that he has long history of substance abuse and has just recently drank yesterday and he has been using this week, but that is still in recovery at this time and reports that he has a poor relationship with his mother and minimal social support system and describes himself to be currently homeless. He reports that he has been very depressed and he has been having thoughts of hurting himself at this time and explained that he does not feel safe and does not trust himself as the thoughts like this has happened in the past. He does report increasing depression, feelings of hopelessness and helplessness, and suicidal ideations and as such, recommendation for inpatient level of care for safety and stabilization was made and the patient was stepped up to the inpatient unit. SUBSTANCE ABUSE HISTORY The patient reports history of alcohol and opioid abuse, and reports that he has been in recovery currently. PAST PSYCHIATRIC HISTORY The patient has had history of multiple inpatient chemical dependency treatments including being at [facility], and [facility] and review of the medical records indicate that he has been diagnosed and treated for mood disorder and has been on combination of psychotropic medications. PAST MEDICAL HISTORY The patient's medical history is significant for hypertension, Unit #: [id number] #: [id number] Patient: EVELINA SOLANO dyslipidemia, gastroesophageal reflux disease, asthma. ALLERGIES Erythromycin. PERSONAL AND SOCIAL HISTORY A 41-year-old white male, who reports that he is single, unemployed, and essentially homeless and has poor social support system. MENTAL STATUS EXAMINATION Middle-aged white male who was casually dressed with fair personal hygiene, appears to be in no acute distress or discomfort. He was awake and alert on interaction with intact orientation to time, place, and person. His mood was anxious with a congruent affect. His speech was slow and goal directed. He reports having suicidal ideations, but denies any homicidal ideations, and also denies any auditory or visual hallucinations. His insight and judgment remain significantly impaired. DIAGNOSTIC IMPRESSION Psychiatric: Bipolar disorder, most recent episode depressed, recurrent, moderate, without psychotic features; opioid abuse, moderate. Medical: Hypertension, dyslipidemia, migraine headaches, asthma. Stressors: Moderate psychosocial stressors. TREATMENT PLAN 1. The patient has presented with history of mood disorder, and has been decompensating and will need inpatient hospitalization for safety and stabilization. We will start him back on his home medications. We will adjust the medications and monitor response. 2. Supportive therapy was provided to the patient. 3. Safe, structured, and nourishing environment will be provided. ESTIMATED LENGTH OF STAY 4 to 5 days. ABILITY TO HELP SELF Limited. WILLINGNESS TO HELP SELF The patient appears to be willing to help self. STRENGTHS 1. Communicative. 2. Cooperative. PROBLEMS 1. Chronic dysphoric symptoms. 2. Poor social support system. DISCHARGE CRITERIA This will be contingent upon the patient's ability to show resolution of his depression and anxiety and his ability to stay safe to himself, particularly after discharge from the hospital. Dictated by... Kizzy Davidson M.D. Unit #: [id number] #: [id number] Patient: EVELINA SOLANO IAA/modl TD: 04/29/2017 07:55 JOB #: [id number] PSYCHIATRIC ASSESSMENT Page 1 of 1 X Kizzy Davisdon MD PSYCHIATRIC ASSESSMENT
--- NOTE | ~2017-04-28 | PN ---
Unit #: [id number] #: [id number] Patient: EVELINA IBARRA [id number] [facility] [address] [place] [address] [id number] I MR#: [id number] NAME: EVELINA IBARRA ROOM: 64 Age: 41 Sex: M Admission Date: 04/28/2017 : 1975 Attending Physician: Kizzy Davidson M.D. Admitting Physician: Kizzy Davidson M.D. Primary Care Physician: Primary Care Physician Verónica GONCALVES PROGRESS NOTES DATE May 01, 2017 DISCUSSION Mr. Ibarra is a 41-year-old white male, with mood disorder who was seen today and chart was reviewed and the case was discussed with the staff. He reports persistent depression and anxiety, and feelings of hopelessness, and he has been taking the medications and tolerating them fairly well with no reported side effects. MENTAL STATUS EXAMINATION Middle-aged white male, who was casually dressed with fair personal hygiene and appears to be in no acute distress or discomfort. He was awake and alert on interaction with intact orientation. His mood is anxious with a congruent affect. His speech is slow and goal-directed. He reports having suicidal ideation but denies any homicidal ideations, and also denies any auditory or visual hallucinations. His insight and judgment remain slightly impaired. TREATMENT PLAN 1. We will continue him on his current medications and treatment protocol, and will monitor his response, and make further adjustments as needed. 2. We will continue to followup. Dictated by... Bill Walker/lulú TD: 05/02/2017 10:40 JOB #: [id number] Unit #: [id number] #: [id number] Patient: EVELINA IBARRA PROGRESS NOTES Page 1 of 1 X Kizzy Davidson MD PROGRESS NOTE
--- NOTE | ~2017-04-28 | PN ---
Unit #: [id number] #: [id number] Patient: EVELINA IBARRA [id number] [facility] [address] [place] [address] [id number] I MR#: [id number] NAME: EVELINA IBARRA ROOM: [facility] Age: 41 Sex: M Admission Date: 04/28/2017 : 1975 Attending Physician: Kizzy Davidson M.D. Admitting Physician: Kizzy Davidson M.D. Primary Care Physician: Primary Care Physician Verónica GONCALVES PROGRESS NOTES DATE 04/30/2017 DISCUSSION Mr. Ibarra is a 41-year-old white male who was seen today and chart was reviewed and case was discussed with the staff. He reports persistent depression and anxiety and feelings of hopelessness. He has been taking the medications and tolerating them fairly well. MENTAL STATUS EXAMINATION Middle-aged white male who was casually dressed with fair personal hygiene and appears to be in no acute distress or discomfort. He was awake and alert on interaction with intact orientation. His mood was anxious and depressed with congruent affect. He reports having suicidal ideation but denies any homicidal ideations. His insight and judgement remains slightly impaired. TREATMENT PLAN 1. Will continue on his current medications and treatment protocol. Will monitor his response to the medications and make further adjustments as needed. 2. Will continue to follow up. Dictated by... Bill Walker/jeanine TD: 04/30/2017 18:41 JOB #: [id number] Unit #: [id number] #: [id number] Patient: EVELINA IBARRA PROGRESS NOTES Page 1 of 1 X Kizzy Davidson MD PROGRESS NOTE
--- NOTE | ~2017-04-28 | PN ---
Unit #: [id number] #: [id number] Patient: EVELINA IBARRA [id number] [facility] [address] [place] [address] [id number] I MR#: [id number] NAME: EVELINA IBARRA ROOM: [facility] Age: 41 Sex: M Admission Date: 04/28/2017 : 1975 Attending Physician: Kizzy Davidson M.D. Admitting Physician: Kizzy Davidson M.D. Primary Care Physician: Primary Care Physician Verónica COX NOTES DATE May 05, 2017 DISCUSSION Mr. Ibarra is a 41-year-old white male, with mood disorder, who was seen today and chart was reviewed and the case was discussed with the staff. He remains anxious, withdrawn, and seclusive to himself, and has been expressing feelings of hopelessness and suicidal ideation, and licensed clinical social worker are working on finding a long-term placement for the patient. He has been taking the medications and tolerating them fairly well but has poor social support system, outside of the hospital and has not been allowing him to get some stability with his depressive symptoms. MENTAL STATUS EXAMINATION Middle-aged white male, who was casually dressed with fair personal hygiene and appears to be in no acute distress or discomfort. He was awake and alert on interaction with intact orientation. His mood is anxious and depressed with a congruent affect. His speech is slow and goal-directed. He reports having suicidal thoughts but denies any homicidal ideation. His insight and judgment remain slightly impaired. TREATMENT PLAN 1. We will continue him on his current medications and treatment protocol, and will monitor his response to the medications, and make further adjustments as needed. 2. We will continue to followup. Dictated by... Bill Walker/lulú TD: 05/05/2017 13:17 JOB #: [id number] Unit #: [id number] #: [id number] Patient: EVELINA IBARRA PROGRESS NOTES Page 1 of 1 X Kizzy Davidson MD PROGRESS NOTE
--- NOTE | ~2017-04-28 | CO ---
Unit #: [id number] #: [id number] Patient: TRACE SOLANO [id number] [place] [address] [id number] I MR#: [id number] NAME: TRACE SOLANO ROOM: [facility] Age: 41 Sex: M Admission Date: 04/28/2017 : 1975 Attending Physician: Kizzy Davidson M.D. Primary Care Physician: Primary Care Physician No Consultation Date: 04/29/2017 CONSULTATION REPORT SUBJECTIVE Trace is a 41 year old who was noted to have an abrasion along his left knee at the time of admission. This area was examined and wound was detailed in his admission H and P dated 04/29/2017. Please see H and P dated 04/29/2017. Dictated by... Nivia Miner P.A.-C. for Leti Ragsdale M.D. JJA/shaw TD: 05/06/2017 11:17 JOB #: [id number] CONSULTATION REPORT Page 1 of 1 X Nivia Miner CONSULTATION REPORT
--- NOTE | ~2017-04-28 | DS ---
Unit #: [id number] #: [id number] [facility] [id number] [facility] [address] [place] [address] [id number] I MR#: [id number] NAME: EVELINA SOLANO ROOM: [facility] Age: 41 Sex: M Admission Date: 04/28/2017 : 1975 Discharge Date: 05/06/2017 Attending Physician: Kizzy Davidson M.D. Primary Care Physician: Primary Care Physician No DISCHARGE SUMMARY IDENTIFYING DATA Mr. Solano is a 41-year-old single white male who is a resident of [place], [place] and was brought to the hospital accompanied by his father. HISTORY OF PRESENT ILLNESS Please see initial evaluation. PAST PSYCHIATRIC HISTORY Please see initial evaluation. PAST MEDICAL HISTORY Please see initial evaluation. HOSPITAL COURSE The patient [facility] and was oriented to the hospital environment. Routine p.r.n. medications were initiated and started back on his home medications. Medications were adjusted and Cymbalta and Seroquel was maintained. He was closely monitored. He was taking the medications regularly and was tolerating them fairly well and was able to show a decent therapeutic response with improvement in depression and anxiety and as such it was decided therefore, he will be discharged to a long-term nursing home and will continue treatment on outpatient basis. DISCHARGE DIAGNOSES PSYCHIATRIC: 1. Bipolar disorder, most recent episode depressed, recurrent, moderate, without psychotic features. 2. Opiate abuse, moderate. MEDICAL: 1. Hypertension. 2. Dyslipidemia. 3. Migraine headaches. 4. Asthma. STRESSORS: Mild psychosocial stressors. DISCHARGE MEDICATIONS 1. Cymbalta 120 mg daily for depression. 2. Seroquel 400 mg at bedtime for bipolar. Unit #: [id number] #: [id number] Patient: EVELINA SOLANO CONDITION AT DISCHARGE Stable. PROGNOSIS Fair. Dictated by... Bill Walker/jeanine TD: 05/06/2017 20:22 JOB #: [id number] DISCHARGE SUMMARY Page 1 of 1 X Kizzy Davidson MD X DISCHARGE SUMMARY
--- NOTE | ~2017-04-28 | HP ---
Unit #: [id number] #: [id number] Patient: TRACE SOLANO [id number] [place] [address] [id number] I MR#: [id number] NAME: TRAEC SOLANO ROOM: 64 Age: 41 Sex: M Admission Date: 04/28/2017 : 1975 Attending Physician: Kizzy Davidson M.D. Admitting Physician: Kizzy Davidson M.D. Primary Care Physician: Primary Care Physician No HISTORY AND PHYSICAL HISTORY OF PRESENT ILLNESS Trace is a 41 year old admitted to [address] [place] [address] because of his continued abuse of alcohol. He has had numerous admissions to this facility. PAST MEDICAL HISTORY 1. Long history of alcohol abuse. 2. High blood pressure. 3. Hypercholesterolemia. 4. History of migraine headaches. 5. Obesity. PAST SURGICAL HISTORY Appendectomy. ALLERGIES Azithromycin. SOCIAL HISTORY He smokes 1/2 pack per day. Drinks 6 to 12 beers on a daily basis and denies illicit drug use. FAMILY HISTORY Medically noncontributory. REVIEW OF SYSTEMS CONSTITUTIONAL: No fever or chills. HEENT: Denies any sore throat, ear pain or runny nose. CARDIOVASCULAR: Denies chest pain, irregular heart rhythm or palpitations. CHEST: Denies shortness of breath or cough. No hemoptysis. GASTROINTESTINAL: Denies nausea, vomiting, diarrhea or chronic constipation. ENDOCRINE: Denies history of increased thirst or urination. No recent significant weight loss or gain. GENITOURINARY: Denies dysuria, frequency, or hematuria. SKIN: Denies any rashes. HEMATOLOGIC: Denies history of increased bleeding or bruising. MUSCULOSKELETAL: Denies any hot, swollen joints. No generalized muscle pain. He fractured his lower right leg 2 days prior to this admission. He is in an air cast. NEUROLOGIC: Denies problems with vision or speech. No frequent, severe headaches. No numbness, tingling or weakness in any extremities. Denies loss of bladder or bowel control. Unit #: [id number] #: [id number] Patient: TRACE SOLANO CURRENT MEDICATIONS No orders received at the time of this dictation. PHYSICAL EXAMINATION GENERAL: Alert, well-nourished, in no apparent distress. VITAL SIGNS: Blood pressure 100/60, heart rate 80, respirations 16, temperature 98.6. SKIN: Warm and dry without rash. He has an abrasion along the left knee. The area has scabbed over. There is no increased redness, swelling, heat or pus noted. HEENT: Normocephalic. TMs not viewed. Oral and nasal passages clear. Conjunctivae clear. PERRLA. EOMs intact. NECK: Supple without lymphadenopathy or thyromegaly. HEART: Regular rate and rhythm without murmur. LUNGS: Clear. ABDOMEN: Soft, nontender. : Not done. EXTREMITIES: No evidence of cyanosis, clubbing or edema. Moves all without focal deficit. Right lower extremity in an aircast. He is ambulating with the assistance of a walker without difficulty. NEUROLOGICAL: Grossly within normal limits. Cranial Nerves: II: Visual diamond are intact. III, IV AND : Extraocular movements are intact. Pupils are equal, round and reactive to light. V: Facial sensation is grossly normal. VII: Facial movements and expression are normal. VIII: Auditory acuity grossly intact. IX, X: Uvula is midline. Phonation is normal. XI: Patient shrugs shoulders and turns head normally. XII: Tongue protrudes in the midline. Sensory and Motor Function: Sensory and motor sensation is grossly normal. Motor: moves all extremities well. Coordination: Gait is normal. Deep Tendon Reflexes: Intact. IMPRESSION Psychiatric admission. RECOMMENDATIONS PSYCHIATRIC: Per psychiatrist. MEDICAL: 1. See no contraindication to participate in facility's activities. 2. Patient knows to follow up with orthopedics concerning his fractured leg. MEDICAL PROGNOSIS Good. MEDICAL CONDITION Stable. Dictated by... Nivia Miner P.A.-C. for Bill Prince/jeanine TD: 04/29/2017 17:35 Unit #: [id number] #: [id number] Patient: TRACE SOLANO JOB #: [id number] HISTORY AND PHYSICAL Page 1 of 1 X Nivia Miner HISTORY AND PHYSICAL
[2017-04-29 12:32] LABS: BASOPHIL% 0.2 % (0-2.5); EOSINOPHIL# 0.2 X10e3 (0-0.7); EOSINOPHIL% 1.8 % (0.0-7.0); HEMATOCRIT 33.3 % (38.0-50.0); HEMOGLOBIN 11.3 gm/dL (13.0-16.0); LYMPHOCYTE# 1.1 X10e3 (1.0-3.5); LYMPHOCYTE% 11.7 % (17.0-45.0); MEAN CELL VOLUME 88.9 FL (83-96); MEAN CORPUSCULAR HEMOGLOBIN 30.1 PG (28-34); MEAN CORPUSCULAR HGB CONC 33.8 g/dL (30-36); MEAN PLATELET VOLUME 10.4 FL (6.5-11.5); MONOCYTE# 0.8 X10e3 (0-1.0); MONOCYTE% 8.8 % (3.0-12.0); NEUTROPHIL# 7.4 X10e3 (1.5-7.1); NEUTROPHIL% 77.5 % (40-75); PLATELET COUNT 215 X10e3 (140-420); RED BLOOD COUNT 3.74 X10e (3.90-5.60); RED CELL DISTRIBUTION WIDTH 13.2 % (11.0-15.5); WHITE BLOOD COUNT 9.5 X10e3 (4.0-10.5)
[2017-04-29 12:37] LABS: DIFF IND NO
[2017-04-29 12:44] LABS: ALBUMIN SERUM 3.7 g/dL (3.5-5.0); BILIRUBIN,TOTAL 0.6 mg/dL (0.2-2.0); BUN/CREATININE RATIO 14.05; CALCIUM SERUM 8.6 mg/dL (8.4-10.2); CREATININE SERUM 3.7 mg/dL (0.6-1.4); GLOM FILT RATE Estimated 19.3 mL/min (>60); POTASSIUM 4.4 mmol/L (3.5-5.1); PROTEIN TOTAL SERUM 6.5 g/dL (6.0-8.3)
[2017-04-30 12:09] LABS: URINE APPEARANCE CLEAR; URINE BILIRUBIN NEG (NEG); URINE BLOOD TRACE (NEG); URINE COLOR YELLOW; URINE GLUCOSE NEG (NEG); URINE KETONE NEG (NEG); URINE LEUKOCYTE ESTERASE NEG (NEG); URINE NITRATE NEG (NEG); URINE PH 5.5 (5-8); URINE PROTEIN TRACE (NEG); URINE SPECIFIC GRAVITY 1.013 (1.003-1.035); URINE UROBILINOGEN 0.2 MG/DL (NEG)
[2017-04-30 12:14] LABS: URBCS1 AUWI 0-2 /[HPF] (0-2); URINE BACTERIA AUWI NEG (NEGATIVE); URINE SQUAMOUS EPITHELIAL CELL NONE SEEN /[HPF]; UWBCS1 AUWI 0-2 (0-5)
[2017-04-30 12:32] LABS: AMPHETAMINE NEG (NEG); BARBITURATES NEG (NEG); BENZODIAZEPINES NEG (NEG); COCAINE NEG (NEG); MARIJUANA NEG (NEG); OPIATES NEG (NEG); TRICYCLIC ANTIDEPRESSANTS POS (NEG); U METHADONE NEG (NEG)
== END 2017-05-06 10:15 | DRG 885 ==
LOC: P2L 22:59
PROVIDERS: Psychiatry & Neurology Psychiatry
DX: F31.32 Bipolar disorder, current episode depressed, moderate (principal); F11.20 Opioid dependence, uncomplicated; R45.851 Suicidal ideations; I10 Essential (primary) hypertension; E78.5 Hyperlipidemia, unspecified; J45.909 Unspecified asthma, uncomplicated; G43.909 Migraine, unspecified, not intractable, without status migrainosus; Z88.1 Allergy status to other antibiotic agents; F17.200 Nicotine dependence, unspecified, uncomplicated; S80.212A Abrasion, left knee, initial encounter; X58.XXXA Exposure to other specified factors, initial encounter
CPT/HCPCS: 80053; 80307; 81003; 85025; J3030